=== PATIENT | male | born 1975 | race Caucasian/White ===

== ENCOUNTER 2019-07-28 22:45 | Emergency (ER) | payer OTHER, SELFPAY ==
[2019-07-28] MEDS ORDERED: Ketorolac Tromethamine 60 MG/2 ML VIAL ONE (23:19)
[2019-07-29] MEDS ORDERED: Morphine 4 MG/ML VIAL ONE (00:03)
[2019-07-29] MEDS ORDERED: Triple Antibiotic Oint 1 GM Packet ONE (00:10)
--- NOTE | 2019-07-29 09:44 | RAD ---
RIGHT RIBS WITH PA CHEST: 07/28/2019 FINDINGS: The chest film shows a normal sized heart. The mediastinum shows no widening or shift. The lungs are fully inflated and clear. There is no sign of contusion, effusion or pneumothorax. Regarding the right ribs, no definite fractures are seen. The only area slightly questionable was angeles r the end of the right 11th rib where the bone seems to curve a little more acutely than expected but I cannot prove a fracture here at this time. Correlate with exact site of pain. IMPRESSION: Probably negative study. Equivocal findings at the distal end of the right 11th rib. CODE T POS: HOME
== END 2019-07-29 00:04 | disposition home or self-care (01) ==
LOC: BURERS 22:45
DX: S20.211A Contusion of right front wall of thorax, initial encounter (principal); S70.11XA Contusion of right thigh, initial encounter; S50.311A Abrasion of right elbow, initial encounter; F17.210 Nicotine dependence, cigarettes, uncomplicated; V49.9XXA Car occupant (driver) (passenger) injured in unspecified traffic accident, initial encounter
CPT/HCPCS: 96372; J1885; J2270

== ENCOUNTER 2022-11-25 16:24 | Outpatient (CLI) | payer OTHER | END 2022-11-25 16:25 | disposition home or self-care (01) | LOC: BURRAD 16:24 | PROVIDERS: ATTEND Family Medicine | DX: M25.511 Pain in right shoulder (principal) ==